=== PATIENT | female | born 1975 | race Caucasian/White ===

== ENCOUNTER 2016-05-25 08:38 | Emergency (ER) | payer OTHER ==
[~2016-05-25] VITALS: Ht 167.6 cm; Wt 88.0 kg
[2016-05-25 08:57] VITALS: BP 143/78
--- NOTE | 2016-05-25 09:00 | NUR ---
Pt taken to bed 6.
--- NOTE | 2016-05-25 09:20 | NUR ---
40/F presents to ED for evaluation of UTI symptoms. Pt c/o burning and dysuria x1 week but states the pain worsened last night. Pt also c/o nocturia, frequency and urgency. Pt denies any blood in urine. Denies N/V/D. Pt c/o lower abdominal pain after urination. Patient is AOX4, central [place] speaking, ambulatory with steady gait. VSS.
--- NOTE | 2016-05-25 09:41 | NUR ---
Patient being evaluated by physician at bedside.
[2016-05-25 10:09] VITALS: BP 143/78
--- NOTE | 2016-05-25 10:10 | NUR ---
Patient discharged with v/s stable. Written and verbal after care instructions given and explained. Patient alert, oriented and verbalized understanding of instructions. Ambulatory with steady gait. All questions addressed prior to discharge. ID band removed. Patient advised to follow up with PMD. Rx of MACROBID AND PYRIDIUM given. Patient educated on indication of medication including possible reaction and side effects. Opportunity to ask questions provided and answered.
== END 2016-05-25 09:41 | disposition home or self-care (01) ==
LOC: MED 08:38
DX: N39.0 Urinary tract infection, site not specified (principal); R03.0 Elevated blood-pressure reading, without diagnosis of hypertension
CPT/HCPCS: 81002; 81025; 99283